=== PATIENT | female | born 1980 | race Caucasian/White ===

== ENCOUNTER 2017-01-05 12:04 | Observation (INO) | payer MEDICAID ==
[~2017-01-05 12:04] MED LIST: PREN1TAB52 PO
[2017-01-05] MEDS ORDERED: GLYB5 PO (12:17)
[2017-01-05 12:46] LABS: GLUCOSE COMMENT 1 Doctor Notified; GLUCOSE,POINT OF CARE 87 MG/DL (70-110)
[2017-01-05 12:52] VITALS: BP 119/62
== END 2017-01-05 13:20 | disposition home or self-care (01) ==
LOC: 4S 12:12
PROVIDERS: ADMIT Obstetrics & Gynecology Gynecology; ATTEND Obstetrics & Gynecology Gynecology
DX: O24.419 Gestational diabetes mellitus in pregnancy, unspecified control (principal); Z3A.34 34 weeks gestation of pregnancy
CPT/HCPCS: 59025; 82962; G0378

== ENCOUNTER 2017-01-09 11:40 | Observation (INO) | payer MEDICAID ==
[~2017-01-09] VITALS: Ht 162.6 cm; Wt 83.0 kg
[~2017-01-09 11:40] MED LIST changes: +GLYB5 PO
[2017-01-09 12:31] LABS: GLUCOSE,POINT OF CARE 99 MG/DL (70-110)
[2017-01-09 12:58] VITALS: BP 124/63
== END 2017-01-09 12:30 | disposition home or self-care (01) ==
LOC: 4S 11:40
PROVIDERS: ADMIT Obstetrics & Gynecology Gynecology; ATTEND Obstetrics & Gynecology Gynecology
DX: O24.419 Gestational diabetes mellitus in pregnancy, unspecified control (principal); Z3A.34 34 weeks gestation of pregnancy
CPT/HCPCS: 59025; 82962; G0378

== ENCOUNTER 2017-01-12 11:30 | Observation (INO) | payer MEDICAID ==
[~2017-01-12] VITALS: Ht 162.6 cm; Wt 83.5 kg
[2017-01-12 11:53] VITALS: BP 116/62
[2017-01-12 12:15] LABS: GLUCOSE COMMENT 1 Doctor Notified; GLUCOSE,POINT OF CARE 102 MG/DL (70-110)
== END 2017-01-12 12:40 | disposition home or self-care (01) ==
LOC: 4S 11:30
PROVIDERS: ADMIT Obstetrics & Gynecology Gynecology; ATTEND Obstetrics & Gynecology Gynecology
DX: O24.415 Gestational diabetes mellitus in pregnancy, controlled by oral hypoglycemic drugs (principal); Z3A.35 35 weeks gestation of pregnancy
CPT/HCPCS: 59025; 82962; G0378

== ENCOUNTER 2017-01-16 10:45 | Observation (INO) | payer MEDICAID ==
[~2017-01-16] VITALS: Ht 182.9 cm; Wt 83.5 kg
[2017-01-16 12:13] VITALS: BP 111/63
[2017-01-16 22:22] LABS: GLUCOSE,POINT OF CARE 114 MG/DL (70-110)
== END 2017-01-16 11:50 | disposition home or self-care (01) ==
LOC: 4S 10:45
PROVIDERS: ADMIT Obstetrics & Gynecology; ATTEND Obstetrics & Gynecology Gynecology
DX: O24.415 Gestational diabetes mellitus in pregnancy, controlled by oral hypoglycemic drugs (principal); O99.213 Obesity complicating pregnancy, third trimester; Z3A.35 35 weeks gestation of pregnancy
CPT/HCPCS: 59025; 82962; G0378

== ENCOUNTER 2017-01-16 13:20 | Observation (INO) | payer MEDICAID ==
[~2017-01-16] VITALS: Ht 162 cm; Wt 83.0 kg
[2017-01-19 18:29] VITALS: BP 118/63
[2017-01-20 08:52] LABS: GLUCOSE,POINT OF CARE 102 MG/DL (70-110)
== END 2017-01-19 19:10 | disposition home or self-care (01) ==
LOC: 4S 01-19 18:05
PROVIDERS: ADMIT Obstetrics & Gynecology; ATTEND Obstetrics & Gynecology
DX: O24.415 Gestational diabetes mellitus in pregnancy, controlled by oral hypoglycemic drugs (principal); Z3A.36 36 weeks gestation of pregnancy
CPT/HCPCS: 82962; G0378

== ENCOUNTER 2017-01-19 20:24 | Observation (INO) | payer MEDICAID ==
[~2017-01-19] VITALS: Ht 162.6 cm; Wt 82.6 kg
[2017-01-23 13:38] VITALS: BP 121/61
[2017-01-23 19:56] LABS: GLUCOSE,POINT OF CARE 88 MG/DL (70-110)
== END 2017-01-23 14:00 | disposition home or self-care (01) ==
LOC: 4S 01-23 13:25
PROVIDERS: ADMIT Obstetrics & Gynecology; ATTEND Obstetrics & Gynecology Gynecology
DX: O24.419 Gestational diabetes mellitus in pregnancy, unspecified control (principal); Z3A.36 36 weeks gestation of pregnancy
CPT/HCPCS: 59025; 82962; G0378

== ENCOUNTER 2017-01-26 12:02 | Observation (INO) | payer MEDICAID ==
[~2017-01-26] VITALS: Ht 162.6 cm; Wt 85.3 kg
[2017-01-26 13:26] LABS: GLUCOSE,POINT OF CARE 81 MG/DL (70-110)
== END 2017-01-26 13:25 | disposition home or self-care (01) ==
LOC: 4S 12:02
PROVIDERS: ADMIT Specialist; ATTEND Specialist
DX: O24.415 Gestational diabetes mellitus in pregnancy, controlled by oral hypoglycemic drugs (principal); Z3A.37 37 weeks gestation of pregnancy
CPT/HCPCS: 59025; 82962; G0378

== ENCOUNTER 2017-01-30 11:55 | Observation (INO) | payer MEDICAID ==
[~2017-01-30] VITALS: Ht 162.6 cm; Wt 83.5 kg
[2017-01-30 12:06] VITALS: BP 124/57
[2017-01-30 12:46] LABS: GLUCOSE,POINT OF CARE 84 MG/DL (70-110)
== END 2017-01-30 12:50 | disposition home or self-care (01) ==
LOC: 4S 11:55
PROVIDERS: ADMIT Specialist; ATTEND Specialist
DX: O24.419 Gestational diabetes mellitus in pregnancy, unspecified control (principal); Z3A.37 37 weeks gestation of pregnancy
CPT/HCPCS: 59025; 82962; G0378

== ENCOUNTER 2017-02-01 08:22 | Observation (INO) | payer MEDICAID ==
[~2017-02-01] VITALS: Ht 162.6 cm; Wt 85.3 kg
[2017-02-01 08:43] VITALS: BP 122/59
[2017-02-01 09:02] LABS: GLUCOSE COMMENT 1 Doctor Notified; GLUCOSE,POINT OF CARE 110 MG/DL (70-110)
== END 2017-02-01 09:00 | disposition home or self-care (01) ==
LOC: 4S 08:22
PROVIDERS: ADMIT Obstetrics & Gynecology Gynecology; ATTEND Obstetrics & Gynecology Gynecology
DX: O24.419 Gestational diabetes mellitus in pregnancy, unspecified control (principal); Z3A.38 38 weeks gestation of pregnancy
CPT/HCPCS: 59025; 82962; G0378

== ENCOUNTER 2017-02-05 12:10 | Observation (INO) | payer MEDICAID ==
[~2017-02-05] VITALS: Ht 165.1 cm; Wt 85.7 kg
[2017-02-05 12:35] VITALS: BP 115/59
[2017-02-05 12:42] LABS: GLUCOSE COMMENT 1 Doctor Notified; GLUCOSE,POINT OF CARE 94 MG/DL (70-110)
== END 2017-02-05 12:50 | disposition home or self-care (01) ==
LOC: 4S 12:10
PROVIDERS: ADMIT Obstetrics & Gynecology Gynecology; ATTEND Obstetrics & Gynecology Gynecology
DX: O24.415 Gestational diabetes mellitus in pregnancy, controlled by oral hypoglycemic drugs (principal); Z3A.38 38 weeks gestation of pregnancy
CPT/HCPCS: 59025; 82962; G0378

== ENCOUNTER 2017-02-09 17:05 | Observation (INO) | payer MEDICAID ==
[2017-02-09 17:57] VITALS: BP 132/65
[2017-02-09 17:57] LABS: GLUCOSE,POINT OF CARE 87 MG/DL (70-110)
== END 2017-02-09 18:15 | disposition home or self-care (01) ==
LOC: 4S 17:05
PROVIDERS: ADMIT Obstetrics & Gynecology Gynecology; ATTEND Obstetrics & Gynecology Gynecology
DX: O24.415 Gestational diabetes mellitus in pregnancy, controlled by oral hypoglycemic drugs (principal); O99.213 Obesity complicating pregnancy, third trimester; Z3A.34 34 weeks gestation of pregnancy
CPT/HCPCS: 59025; 82962; G0378

== ENCOUNTER 2017-02-10 13:36 | Inpatient (IN) | payer MEDICAID ==
[2017-02-10] MEDS ORDERED: OXYTOCIN 30 UNITS/LACT RINGERS 500 ML IV ONE (15:52)
[2017-02-10] MEDS ORDERED: AMPICILLIN SODIUM 2 GM/NS 100 ML IV ONE ×2 (15:52→16:00)
[2017-02-10] MEDS ORDERED: RINGERS SOLUTION,LACTATED 1,000 ML IV ONE ×2 (15:52→17:41)
[2017-02-10 17:58] LABS: BASOPHILS % (AUTO) 0.3 % (0.0-2.0); EOSINOPHILS % (AUTO) 0.9 % (1.0-6.0); HEMATOCRIT 38.5 % (36-46); HEMOGLOBIN 12.6 g/dL (12.0-16.0); LYMPHOCYTES % (AUTO) 19.5 % (22.0-44.0); MEAN CORPUSCULAR HEMOGLOBIN 27.8 pg (26.0-34.0); MEAN CORPUSCULAR HGB CONC 32.6 G/dL (31.0-37.0); MEAN CORPUSCULAR VOLUME 85 fL (80-100); MONOCYTES # (AUTO) 0.5 K/uL (0.1-1.0); NEUTROPHILS # (AUTO) 7.7 K/uL (1.8-7.7); NEUTROPHILS % (AUTO) 74.3 % (40.0-70.0); RED BLOOD CELL COUNT(AUTO) 4.51 MIL/uL (4.00-5.20); RED CELL DISTRIBUTION WIDTH 15.6 % (11.5-14.5); WHITE BLOOD COUNT (AUTO) 10.4 K/uL (4.5-11.0)
[2017-02-10] MEDS ORDERED: RINGERS SOLUTION,LACTATED 1,000 ML IV SCH (18:00)
[2017-02-10] MEDS ORDERED: RINGERS SOLUTION,LACTATED 1,000 ML IV PRN (18:00)
[2017-02-10] MEDS ORDERED: FentaNYL CITRATE-PF 100 MCG/2 ML VIAL IVP PRN (18:00)
[2017-02-10] MEDS ORDERED: OXYTOCIN 30 UNITS/LACT RINGERS 500 ML IV PRN (18:00)
[2017-02-10] MEDS ORDERED: FentaNYL/BUPIV 0.125%/NS/PF 200 ML ED PRN (18:21)
[2017-02-10] MEDS ORDERED: DiphenhydrAMINE HCL 50 MG/ML VIAL IVP PRN (18:30)
[2017-02-10] MEDS ORDERED: FentaNYL/BUPIV 0.125%/NS/PF 200 ML ED ONE (18:30)
[2017-02-10] MEDS ORDERED: PROMETHAZINE HCL 25 MG/ML VIAL IM PRN (18:30)
[2017-02-10] MEDS ORDERED: NALBUPHINE HCL 10 MG/ML VIAL IVP PRN (18:30)
[2017-02-10] MEDS ORDERED: ONDANSETRON HCL 4 MG/2 ML VIAL IVP PRN (18:30)
[2017-02-10] MEDS ORDERED: LIDOCAINE HCL/PF 2% 5 ML VIAL ONE (18:30)
[2017-02-10 19:22] LABS: GLUCOSE COMMENT 1 Juice/Food/D50 Given; GLUCOSE,POINT OF CARE 61 MG/DL (70-110)
[2017-02-10 19:22] LABS: GLUCOSE,POINT OF CARE 94 MG/DL (70-110)
[2017-02-10] MEDS ORDERED: AMPICILLIN SODIUM 1 GM/NS 50 ML IV SCH (20:00)
[2017-02-10] MEDS ORDERED: GLYCERIN/WITCH HAZEL LEAF 40 PADS JAR TP PRN (21:30)
[2017-02-10] MEDS ORDERED: ACETAMINOPHEN/CODEINE 300-30 MG TABLET PO PRN ×2 (21:30)
[2017-02-10] MEDS ORDERED: LANOLIN 7 GM OINTMENT TP PRN (21:30)
[2017-02-10] MEDS ORDERED: BENZOCAINE 20%/MENTHOL 56 GM SPRAY CANISTER TP PRN (21:30)
[2017-02-10] MEDS ORDERED: MEASLES/MUMPS/RUBELLA VACCINE, LIVE 0.5 ML/VIAL SQ ONE (21:30)
[2017-02-11] MEDS: MAGNESIUM HYDROXIDE SUSPENSION 30 ML UDCUP PO SCH ×2 (09:00→21:01)
[2017-02-11] MEDS ORDERED: IBUP-2070 PO (20:50)
[2017-02-11] MEDS ORDERED: DOCU250C91 PO (20:53)
[2017-02-12] MEDS: IBUPROFEN 600 MG TABLET PO PRN ×2 (07:47→13:35)
[2017-02-12] MEDS: MAGNESIUM HYDROXIDE SUSPENSION 30 ML UDCUP PO SCH (08:39)
== END 2017-02-12 17:40 | disposition home or self-care (01) | DRG 560 ==
LOC: 4S 13:36 → OBSVTOIN 13:36
PROVIDERS: ADMIT Obstetrics & Gynecology Gynecology; ATTEND Obstetrics & Gynecology Gynecology
PROC: 10E0XZZ Delivery of Products of Conception, External Approach (ICD-10-PCS; principal; 2017-02-10)
PROC: 0HQ9XZZ Repair Perineum Skin, External Approach (ICD-10-PCS; 2017-02-10)
PROC: 3E0S3CZ (ICD-10-PCS; 2017-02-10)
PROC: 00HU33Z Insertion of Infusion Device into Spinal Canal, Percutaneous Approach (ICD-10-PCS; 2017-02-10)
DX: O99.824 Streptococcus B carrier state complicating childbirth (principal); O24.424 Gestational diabetes mellitus in childbirth, insulin controlled; O09.523 Supervision of elderly multigravida, third trimester; O63.0 Prolonged first stage (of labor); O70.0 First degree perineal laceration during delivery; Z37.0 Single live birth; Z3A.39 39 weeks gestation of pregnancy; Z91.010 Allergy to peanuts; Z79.4 Long term (current) use of insulin
CPT/HCPCS: 82962; 86850; 86900; 86901; J0290; J2590; J3490; J7120

== ENCOUNTER 2021-06-08 22:02 | Emergency (ER) | payer MEDICAID ==
[~2021-06-08] VITALS: Ht 165.1 cm; Wt 76.4 kg
[~2021-06-08 22:02] MED LIST changes: +DOCU-350 PO; -GLYB5 PO; +IBUP-2070 PO
[2021-06-08] MEDS ORDERED: MECLIZINE HCL 25 MG TABLET PO ONE (23:15)
[2021-06-08 23:24] LABS: BASOPHILS % (AUTO) 0.5 % (0.0-2.0); EOSINOPHILS % (AUTO) 0.6 % (1.0-6.0); HEMATOCRIT 39.6 % (36-46); LYMPHOCYTES # (AUTO) 1.2 K/uL (1.0-4.8); LYMPHOCYTES % (AUTO) 13.4 % (22.0-44.0); MEAN CORPUSCULAR HEMOGLOBIN 28.8 pg (26.0-34.0); MEAN CORPUSCULAR HGB CONC 32.7 G/dL (31.0-37.0); MEAN CORPUSCULAR VOLUME 88 fL (80-100); MONOCYTES # (AUTO) 0.3 K/uL (0.1-1.0); NEUTROPHILS # (AUTO) 7.4 K/uL (1.8-7.7); NEUTROPHILS % (AUTO) 82.5 % (40.0-70.0); PLATELET COUNT (AUTO) 341 K/uL (150-450); RED BLOOD CELL COUNT(AUTO) 4.49 MIL/uL (4.00-5.20); RED CELL DISTRIBUTION WIDTH 13.8 % (11.5-14.5)
[2021-06-08 23:33] LABS: ANION GAP 12 mmol/L (8-16); CALCIUM, TOTAL 8.7 mg/dL (8.8-10.5); CARBON DIOXIDE 28 mmol/L (22-29); CHLORIDE 102 mmol/L (98-107); CREATININE 0.77 mg/dL (0.60-1.30); GLOMERULAR FILTR. RATE CALC > 60 mL/min (>60); GLUCOSE,RANDOM 144 mg/dL (70-110); POTASSIUM 3.7 mmol/L (3.5-5.1); SODIUM SERUM 142 mmol/L (136-145); UREA NITROGEN, BLOOD 14 mg/dL (7-18)
[2021-06-08 23:45] LABS: ALANINE AMINOTRANSFERASE 21 U/L (12-78); ALBUMIN 3.6 g/dL (3.4-5.0); ALKALINE PHOSPHATASE 71 U/L (46-116); ASPARTATE AMINOTRANSFERASE 14 U/L (15-37); BILIRUBIN,TOTAL 0.2 mg/dL (0.1-1.0); HCG,QUANTITATIVE < 1 mIU/mL (0-6); TOTAL PROTEIN, SERUM 7.7 g/dL (6.4-8.2)
[2021-06-09 01:00] VITALS: BP 141/70
== END 2021-06-09 01:39 | disposition home or self-care (01) ==
LOC: EMS 22:03
DX: R42 Dizziness and giddiness (principal); R11.10 Vomiting, unspecified; Z91.010 Allergy to peanuts
CPT/HCPCS: 80053; 84702; 85025; 99283